=== PATIENT | female | born 1970 | race Caucasian/White ===

== ENCOUNTER 2016-05-06 16:08 | Inpatient (IN) | payer OTHER ==
[~2016-05-06] VITALS: Ht 170.2 cm; Wt 145.7 kg
[2016-05-06] MEDS ORDERED: OPTIRAY 350 100 ML VIAL HMH IV ONE (16:09)
[2016-05-06] MEDS ORDERED: DIPHENHYDRAMINE 50 MG/ML VIAL ONE (18:19)
[2016-05-06] MEDS ORDERED: KETOROLAC 30 MG/ML VIAL ONE (18:19)
[2016-05-06] MEDS ORDERED: METOCLOPRAMIDE 10 MG/2 ML VIAL ONE (18:19)
[2016-05-06] MEDS ORDERED: SODIUM CHLORIDE 0.9% 1,000 ML ONE (18:19)
[2016-05-06] MEDS ORDERED: CEFTRIAXONE 1 GM VIAL ONE (19:56)
[2016-05-06] MEDS ORDERED: SODIUM CHLORIDE 0.9% 100 ML IV ONE (19:56)
[2016-05-06] MEDS ORDERED: OSELTAMIVIR 75 MG CAP ONE (20:47)
[2016-05-06] MEDS ORDERED: GUAIFEN/DM 10 ML UDC PO PRN (21:15)
[2016-05-06] MEDS ORDERED: BISACODYL 10 MG SUPP RECTAL PRN (21:15)
[2016-05-06] MEDS ORDERED: OSELTAMIVIR 75 MG CAP PO SCH (21:15)
[2016-05-06] MEDS ORDERED: MAG HYDROX 30 ML UDC PO PRN (21:15)
[2016-05-06] MEDS ORDERED: PROMETHAZINE 25 MG TAB PO PRN (21:15)
[2016-05-06] MEDS ORDERED: SALINE FLUSH 10 ML FLUSH PRN (21:15)
[2016-05-06] MEDS ORDERED: MORPHINE 2 MG/ML SYR IV PRN (21:15)
[2016-05-06] MEDS: SALINE FLUSH 10 ML FLUSH SCH (21:15)
[2016-05-06] MEDS ORDERED: BISACODYL EC 5 MG TAB PO PRN (21:15)
[2016-05-06] MEDS ORDERED: ALU/MAG/SIM 30 ML UDC PO PRN (21:15)
[2016-05-06] MEDS ORDERED: NEB-ALBUTEROL 2.5 MG/3 ML INH ONE (21:20)
[2016-05-06 23:00] VITALS: BP_SYST 172; RESP 22; TEMP 98.8
[2016-05-07] MEDS: DILTIAZEM 30 MG TAB PO SCH ×3 (01:04→21:07)
[2016-05-07] MEDS: ACETAMINOPHEN 325 MG TAB PO PRN ×2 (01:20→12:07)
[2016-05-07 02:38] VITALS: Ht 170.2 cm; Wt 145.7 kg
[2016-05-07] MEDS: DUONEB INH SCH ×7 (02:39→22:16)
[2016-05-07 03:17] VITALS: BP_SYST 156; RESP 20; TEMP 98.9
[2016-05-07] MEDS: SODIUM CHLORIDE 0.9% FLUSH BAG 500 ML IV SCH (05:42)
[2016-05-07 08:12] VITALS: BP_SYST 162; RESP 20; TEMP 97.7
[2016-05-07] MEDS: LEVOFLOXACIN 750 MG/150 ML 150 ML IV SCH (09:01)
[2016-05-07] MEDS: SALINE FLUSH 10 ML FLUSH SCH ×2 (09:01→21:14)
[2016-05-07] MEDS: PANTOPRAZOLE 40 MG VIAL IV SCH (09:02)
[2016-05-07] MEDS: CHLORTHALIDONE 25 MG TAB PO SCH (09:02)
[2016-05-07] MEDS: OSELTAMIVIR 75 MG CAP PO SCH ×2 (09:03→21:07)
[2016-05-07] MEDS: CITALOPRAM 20 MG TAB PO SCH (09:03)
[2016-05-07] MEDS: ENOXAPARIN 40 MG/0.4 ML SYR SUBQ SCH (09:04)
[2016-05-07 10:40] VITALS: BP_SYST 144; RESP 18
[2016-05-07 15:39] VITALS: BP_SYST 142; RESP 18; TEMP 98.2
[2016-05-07 19:15] VITALS: BP_SYST 128; RESP 20; TEMP 98.4
[2016-05-07 23:16] VITALS: BP_SYST 148; RESP 18; TEMP 98.1
[2016-05-08] MEDS: DUONEB INH SCH ×6 (02:17→22:34)
[2016-05-08 03:05] VITALS: BP_SYST 138; RESP 16; TEMP 98.1
[2016-05-08 08:03] VITALS: BP_SYST 144; RESP 16; TEMP 97.9
[2016-05-08] MEDS ORDERED: KCL CR 20 MEQ TAB PO ONE (09:00)
[2016-05-08] MEDS: PANTOPRAZOLE 40 MG VIAL IV SCH (09:05)
[2016-05-08] MEDS: OSELTAMIVIR 75 MG CAP PO SCH ×2 (09:05→21:06)
[2016-05-08] MEDS: CITALOPRAM 20 MG TAB PO SCH (09:06)
[2016-05-08] MEDS: ENOXAPARIN 40 MG/0.4 ML SYR SUBQ SCH (09:07)
[2016-05-08] MEDS: CHLORTHALIDONE 25 MG TAB PO SCH (09:07)
[2016-05-08] MEDS: LEVOFLOXACIN 750 MG/150 ML 150 ML IV SCH (09:08)
[2016-05-08] MEDS: SODIUM CHLORIDE 0.9% FLUSH BAG 500 ML IV SCH (09:08)
[2016-05-08] MEDS: SALINE FLUSH 10 ML FLUSH SCH ×2 (09:08→21:06)
[2016-05-08] MEDS ORDERED: MISSING DOSE XX ONE (09:15)
[2016-05-08] MEDS: DILTIAZEM 30 MG TAB PO SCH ×2 (10:08→21:06)
[2016-05-08 12:03] VITALS: BP_SYST 148; RESP 18; TEMP 97.3
[2016-05-08 15:57] VITALS: BP_SYST 128; RESP 16; TEMP 98
[2016-05-08 20:33] VITALS: BP_SYST 140; RESP 18; TEMP 97.9
[2016-05-08 23:16] VITALS: BP_SYST 110; RESP 20; TEMP 98.3
[2016-05-09] MEDS: DUONEB INH SCH ×3 (02:59→10:20)
[2016-05-09 03:12] VITALS: BP_SYST 120; RESP 20; TEMP 97.6
[2016-05-09] MEDS: SODIUM CHLORIDE 0.9% FLUSH BAG 500 ML IV SCH (05:09)
[2016-05-09 07:49] VITALS: BP_SYST 118; RESP 22; TEMP 97.1
[2016-05-09] MEDS: SALINE FLUSH 10 ML FLUSH SCH (08:00)
[2016-05-09] MEDS ORDERED: KCL CR 20 MEQ TAB PO ONE (08:55)
[2016-05-09] MEDS: OSELTAMIVIR 75 MG CAP PO SCH (09:37)
[2016-05-09] MEDS: CHLORTHALIDONE 25 MG TAB PO SCH (09:37)
[2016-05-09] MEDS: LEVOFLOXACIN 750 MG/150 ML 150 ML IV SCH (09:37)
[2016-05-09] MEDS: PANTOPRAZOLE 40 MG VIAL IV SCH (09:40)
[2016-05-09] MEDS: CITALOPRAM 20 MG TAB PO SCH (09:46)
[2016-05-09] MEDS: DILTIAZEM 30 MG TAB PO SCH (09:46)
[2016-05-09] MEDS: ENOXAPARIN 40 MG/0.4 ML SYR SUBQ SCH (09:47)
[2016-05-09 11:01] VITALS: BP_SYST 118; RESP 20; TEMP 98
[2016-05-09 13:17] VITALS: BP_SYST 132; RESP 18; TEMP 97
[2016-05-09 13:59] VITALS: BP_SYST 132; RESP 18; TEMP 97
[2016-05-10] MEDS ORDERED: PANTOPRAZOLE 40 MG TAB PO SCH (07:00)
[2016-05-10] MEDS ORDERED: ERGOCALCIFEROL 50,000 UNITS (1.25 MG) CAP PO SCH (09:00)
== END 2016-05-09 14:17 | disposition home or self-care (01) | DRG 153 ==
LOC: CANRESERV → ENRESERVDT → ENRESERVTM → ER 16:08 → EMR 21:12 → ENPENDDIS 21:12 → 3NT 23:10
PROVIDERS: ADMIT Internal Medicine; ATTEND Internal Medicine
DX: J11.1 Influenza due to unidentified influenza virus with other respiratory manifestations (principal); Z68.43 Body mass index [BMI] 50.0-59.9, adult; I10 Essential (primary) hypertension; J44.9 Chronic obstructive pulmonary disease, unspecified; R91.1 Solitary pulmonary nodule; E66.01 Morbid (severe) obesity due to excess calories; Z72.0 Tobacco use; F32.9 Major depressive disorder, single episode, unspecified; E55.9 Vitamin D deficiency, unspecified
CPT/HCPCS: 36415; 71020; 71260; 74177; 80048; 80053; 81001; 83605; 83690; 84145; 84439; 84443; 84703; 85025; 85652; 86141; 87040; 87804; 94640; 96361; 96374; 96375; 99222; 99232; 99238